=== PATIENT | male | born 1985 | race Caucasian/White ===

== ENCOUNTER 2016-12-06 12:20 | Emergency (ER) | payer SELFPAY ==
[~2016-12-06] VITALS: Ht 175.3 cm; Wt 98.0 kg
[2016-12-06] MEDS ORDERED: TETANUS, DIPHTHERIA, PERTUSSIS VAC/PF 0.5ML (>7YR OLD) IM ONE (14:15)
[2016-12-06] MEDS ORDERED: ACETAMINOPHEN 500MG TABLET PO ONE (14:15)
[2016-12-06] MEDS ORDERED: BACITRACIN ZINC OINT UDPKT TOP ONE (14:15)
[2016-12-06] MEDS ORDERED: LIDOCAINE HCL 1% 20ML VIAL (Pyxis) INJ MC ONE (14:15)
[2016-12-06 15:44] VITALS: BP 129/81
== END 2016-12-06 15:46 | disposition home or self-care (01) ==
LOC: ER 12:20
DX: S61.012A Laceration without foreign body of left thumb without damage to nail, initial encounter (principal); W45.8XXA Other foreign body or object entering through skin, initial encounter; Y93.89 Activity, other specified; Y92.89 Other specified places as the place of occurrence of the external cause; Y99.8 Other external cause status
CPT/HCPCS: 12001; 90471; 90715; 99283; J3490; Z7610

== ENCOUNTER 2016-12-18 12:02 | Emergency (ER) | payer SELFPAY ==
[~2016-12-18] VITALS: Ht 177.8 cm; Wt 97.0 kg
[2016-12-18 12:07] VITALS: BP 122/75
[2016-12-18] MEDS ORDERED: BACITRACIN ZINC OINT UDPKT TOP ONE (13:15)
== END 2016-12-18 13:39 | disposition home or self-care (01) ==
LOC: ER 13:22
DX: S61.012D Laceration without foreign body of left thumb without damage to nail, subsequent encounter (principal); X58.XXXD Exposure to other specified factors, subsequent encounter
CPT/HCPCS: 99282; X7700; Z7610